=== PATIENT | male | born 1970 | race Caucasian/White ===

== ENCOUNTER 2022-10-09 06:50 | Emergency (ER) | payer OTHER ==
[~2022-10-09] VITALS: Ht 175.3 cm; Wt 95.2 kg
== END 2022-10-09 10:31 | disposition home or self-care (01) ==
LOC: ER 06:50
DX: S80.02XA Contusion of left knee, initial encounter (principal); Z91.048 Other nonmedicinal substance allergy status; W19.XXXA Unspecified fall, initial encounter
CPT/HCPCS: 73562-LT; 73590; A9270

== ENCOUNTER 2022-10-18 18:42 | Emergency (ER) | payer OTHER ==
[~2022-10-18] VITALS: Ht 175.3 cm; Wt 95.2 kg
[2022-10-18] MEDS ORDERED: AMOCLA875 PO (20:51)
== END 2022-10-18 20:55 | disposition home or self-care (01) ==
LOC: ER 18:42
DX: S61.231A Puncture wound without foreign body of left index finger without damage to nail, initial encounter (principal); W27.8XXA Contact with other nonpowered hand tool, initial encounter; Z23 Encounter for immunization
CPT/HCPCS: 73130; 90714; A9270